=== PATIENT | female | born 1970 | race Caucasian/White ===

== ENCOUNTER 2016-10-16 20:15 | Emergency (ER) | payer OTHER ==
[~2016-10-16] VITALS: Ht 175.3 cm; Wt 79.8 kg
[2016-10-16 20:21] VITALS: BP 113/66; PULSE 77; RESP 18; TEMP 98.9; O2SAT 99
[2016-10-16] MEDS ORDERED: SODIUM CHLOR 0.9% 1000 ML INJ 1,000 ML IV SCH (21:11)
[2016-10-16] MEDS ORDERED: ALUMINUM/MAGNESIUM/SIMETH 30 ML CUP PO ONE (21:15)
[2016-10-16] MEDS ORDERED: LIDOCAINE VISCOUS 2% SOLN 15 ML UDC PO ONE (21:15)
[2016-10-16] MEDS ORDERED: PANTOPRAZOLE SODIUM 40 MG VIAL IVP ONE (21:15)
[2016-10-16] MEDS ORDERED: SODIUM CHLORIDE 0.9% FLUSH 5 ML FLUSH IVF PRN (21:15)
--- NOTE | 2016-10-16 21:38 | PD ---
HPI Chief Complaint: Abdominal Pain Time Seen by Provider: 20:59 Travel History International Travel<30 days: No Contact w/Intl Traveler<30days: No Traveled to known affect area: No History of Present Illness HPI Patient is a 45-year-old female who comes in complaining of abdominal pain. She says the pain started this afternoon after eating a papaya for lunch. She says the pain was so severe it doubled over. She did take some Mylanta, which she says this started to help. She denies nausea or vomiting. She says the pain is in her upper abdomen. She says she has been told she has a "stress stomach" in the past. She has never been diagnosed with an ulcer. She denies seeing any blood in her stool or any dark stools. Her last bowel movement was this afternoon and it was normal. She denies any fever or chills. She denies any dysuria or vaginal discharge. PFSH Past Medical History Diminished Hearing: No Tetanus Vaccination: Unknown Influenza Vaccination: No ?: Not LMP: 3-4 months ago/HX of ablation Past Surgical History Cholecystectomy: Yes Social History Alcohol Use: Yes (SOC) Tobacco Use: No Substance Use: No Allergies-Medications (Allergen,Severity, Reaction): Coded Allergies: No Known Allergies (Unverified , 10/16/16) Reported Meds & Prescriptions Reported Meds & Active Scripts Active No Active Prescriptions or Reported Medications Review of Systems Except as stated in HPI: all other systems reviewed are Neg General / Constitutional: No: Fever, Chills HENT: No: Headaches, Lightheadedness Cardiovascular: No: Chest Pain or Discomfort Respiratory: No: Shortness of Breath Gastrointestinal: Positive: Abdominal Pain, No: Nausea, Vomiting, Diarrhea Genitourinary: No: Dysuria, Flank Pain Musculoskeletal: No: Edema, Pain Skin: No Rash, No Change in Pigmentation Neurologic: No: Weakness, Dizziness Physical Exam Narrative GENERAL: Awake and alert in no acute distress. SKIN: Warm and dry. HEAD: Atraumatic. Normocephalic. EYES: Pupils equal and round. No scleral icterus. ENT: Mucous membranes pink and moist. NECK: Trachea midline. No JVD. CARDIOVASCULAR: Regular rate and rhythm. No murmur appreciated. RESPIRATORY: No accessory muscle use. Clear to auscultation. Breath sounds equal bilaterally. GASTROINTESTINAL: Abdomen soft, nondistended. Mild tenderness to palpation of the left upper quadrant. No rebound or guarding. MUSCULOSKELETAL: No obvious deformities. No clubbing. No cyanosis. No edema. NEUROLOGICAL: Awake and alert. No obvious cranial nerve deficits. Motor grossly within normal limits. Normal speech. PSYCHIATRIC: Appropriate mood and affect; insight and judgment normal. Data Data Last Documented VS Vital Signs Date Time Temp Pulse Resp B/P Pulse Ox O2 Delivery O2 Flow Rate FiO2 10/16/16 22:09 77 18 114/75 100 Room Air 10/16/16 20:21 98.9 Orders Urinalysis - C+S If Indicated (10/16/16 21:11) Ua Includes Microscopic (10/16/16 21:11) Iv Access Insert/Monitor (10/16/16 21:11) Ecg Monitoring (10/16/16 21:11) Oximetry (10/16/16 21:11) Pantoprazole Inj (Protonix Inj) (10/16/16 21:15) Sodium Chlor 0.9% 1000 Ml Inj (Ns 1000 M (10/16/16 21:11) Sodium Chloride 0.9% Flush (Ns Flush) (10/16/16 21:15) Al-Mag Hy-Si 40-40-4 Mg/Ml Liq (Mag-Al P (10/16/16 21:15) Lidocaine 2% Viscous (Xylocaine 2% Visco (10/16/16 21:15) Ed Urine Pregnancytest Poc (10/16/16 21:11) Labs Laboratory Tests Test 10/16/16 21:30 Urine Color YELLOW Urine Turbidity CLOUDY Urine pH 6.5 Urine Specific Gleason 1.015 Urine Protein NEG mg/dL Urine Glucose (UA) NEG mg/dL Urine Ketones NEG mg/dL Urine Occult Blood TRACE Urine Nitrite NEG Urine Bilirubin NEG Urine Leukocyte Esterase SMALL Urine RBC 0-3 /hpf Urine WBC 3-5 /hpf Urine Squamous Epithelial 0-5 /hpf Cells Urine Bacteria FEW /hpf Urine Mucus FEW /lpf Microscopic Urinalysis Comment CULT NOT INDICATED MDM Medical Decision Making Medical Screen Exam Complete: Yes Emergency Medical Condition: Yes Differential Diagnosis Gastritis versus GERD versus peptic ulcer disease versus pancreatitis versus cholecystitis versus cholelithiasis Narrative Course Patient is a 45-year-old female comes in complaining of abdominal pain. Exam shows mild left upper quadrant tenderness. Labs were ordered, however patient declined IV or blood work at this time. She says she is already feeling better and does not feel she needs this at this time. I discussed with her that I am unable to check things like her hemoglobin to check for anemia if she has a bleeding ulcer, all for her white blood cell count or her kidney function or liver function to assess for pancreatitis or gallstones, without doing labs. She says she would rather forego the chest at this time. Given GI cocktail. States she feels much better and is ready to go home. Advised to take her Zantac daily. Advised to avoid acidic foods, spicy foods, caffeine. Advised follow-up with her broadcaster. Advised to return to the emergency department for any worsening symptoms. Diagnosis Primary Impression: GERD (gastroesophageal reflux disease) Qualified Code: K21.9 - Gastroesophageal reflux disease without esophagitis Patient Instructions: Gastroesophageal Reflux Disease (ED), General Instructions Additional Instructions: Follow up with your broadcaster. Avoid spicy foods, acidic foods, caffeine. Return to the ED as needed for any worsening symptoms. Scripts No Active Prescriptions or Reported Meds Disposition: 01 DISCHARGE HOME Condition: Stable Meghana Newman MD Oct 16, 2016 21:38
[2016-10-16 21:50] LABS: BLOOD, URINE TRACE (NEG); GLUCOSE,URINE NEG (NEG); KETONE, URINE NEG (NEG); NITRITE,URINE NEG (NEG); PH, URINE 6.5 (5.0-8.5)
[2016-10-16 22:01] LABS: URINE COLOR YELLOW (YELLW/STRAW)
[2016-10-16 22:03] LABS: BACTERIA, URINE FEW /hpf; MUCUS URINE FEW /lpf (OCC); RBC, URINE 0-3 /hpf (0-3); SQUAMOUS EPITHELIAL CELL URINE 0-5 /hpf (0-5)
[2016-10-16 22:04] LABS: COMMENT (UR) CULT NOT INDICATED; CULTURE IF INDICATED CULT NOT INDICATED
[2016-10-16 22:07] VITALS: RESP 18; O2SAT 99
[2016-10-16 22:09] VITALS: BP 114/75; PULSE 77; RESP 18; O2SAT 100
== END 2016-10-16 22:12 | disposition home or self-care (01) ==
LOC: PHED 20:15
DX: K21.9 Gastro-esophageal reflux disease without esophagitis (principal)
CPT/HCPCS: 81001; 84703; 99283